=== PATIENT | female | born 2000 | race Caucasian/White ===

== ENCOUNTER 2023-05-30 11:02 | Outpatient (CLI) | payer BC, SELFPAY ==
[2023-05-30 14:29] LABS: Chlamydia DNA Amplified* NOT DETECTED (No Detected); GC DNA Amplified* NOT DETECTED (No Detected)
== END 2023-05-30 11:03 | disposition home or self-care (01) ==
PROVIDERS: Visit Provider Obstetrics & Gynecology
DX: Z34.91 Encounter for supervision of normal pregnancy, unspecified, first trimester (principal); Z3A.13 13 weeks gestation of pregnancy
CPT/HCPCS: 86592; 86703; 86704; 86706; 86762; 86787; 86803; 86850; 86900; 86901; 87086; 87340; 87491; 87591

== ENCOUNTER 2023-06-23 15:22 | Outpatient (CLI) | payer BC, SELFPAY | END 2023-06-23 15:23 | disposition home or self-care (01) | LOC: NFLDREF 15:23 | PROVIDERS: Visit Provider Obstetrics & Gynecology | DX: O23.42 Unspecified infection of urinary tract in pregnancy, second trimester (principal) | CPT/HCPCS: 87086 ==

== ENCOUNTER 2023-08-01 08:59 | Outpatient (CLI) | payer BC, SELFPAY ==
--- NOTE | 2023-08-01 09:15 | CRLHL7_ITS ---
For Patients: As a result of the Century Cures Act, medical imaging exams and procedure reports are released immediately into your electronic medical record. You may view this report before your referring provider. If you have questions, please contact your health care provider. INDICATION: Evaluate anatomy. COMPARISON: none TECHNIQUE: Real time cutler scale imaging of the fetus was performed as well as color Doppler analysis of the umbilical vessels. FINDINGS: Sonographic imaging demonstrates a single living intrauterine gestation. Fetus demonstrates a regular cardiac rate of 142 beats per minute. Fetus has a vertex position. The placenta lies anteriorly without evidence of placenta previa. Placental edge 4.5 cm from the internal cervical os. Amniotic fluid volume appears normal. Single deepest vertical pocket: 6.3 cm. The cervix is closed and measures 4.1 cm in length. The composite ultrasound gestational age is calculated at 22 weeks 4 days with an estimated sonographic due date of 12/01/2023. The estimated weight is 479 grams which lies at the 67th %. The following biometric measurements were obtained: Biparietal diameter: 4.5 cm/22 weeks 4 days 80th% Head circumference: 20.1 cm/22 weeks 2 days 62nd% Abdominal circumference: 17.4 cm/22 weeks 2 days 63rd% Femur length: 3.7 cm/21 weeks 6 days 44th% The HC/AC ratio measures: 1.16 range (1.05-1.22) On anatomic survey, there is a normal appearance of the cerebral ventricles, cavum septi pellucidi, cisterna magna and cerebellum. The nose, lips, and facial profile appear normal. The cervical, thoracic and lumbar spine are well visualized and appear normal. There is a normal four-chamber heart view and the left and right ventricular outflow tracts appear normal. The diaphragm and stomach appear normal. The kidneys and bladder also appear normal. There is a normal three-vessel cord and cord insertion site. The four extremities appear normal. A placental pop is present adjacent to the cord insertion measuring 3.4 x 1.2 cm. IMPRESSION: Sonographic gestational age 22 weeks 4 days and sonographic due date 12/01/2023. Sonographic age 6 days ahead of the clinical age. No intrinsic abnormalities noted on anatomic survey. 3.4 cm placental Pop adjacent to the cord insertion. Follow-up in the early 3rd trimester recommended. Dictated by Jonathan Gottlieb MD @ 08/03/2023 6:36:13 AM (Electronically Signed)
== END 2023-08-01 09:00 | disposition home or self-care (01) ==
LOC: US 09:00
PROVIDERS: Visit Provider Obstetrics & Gynecology
DX: Z34.92 Encounter for supervision of normal pregnancy, unspecified, second trimester (principal); Z3A.22 22 weeks gestation of pregnancy
CPT/HCPCS: 76805

== ENCOUNTER 2023-09-18 08:54 | Outpatient (CLI) | payer BC, SELFPAY | END 2023-09-18 08:55 | disposition home or self-care (01) | LOC: NFLDREF 09-21 04:53 | PROVIDERS: Visit Provider Obstetrics & Gynecology | DX: Z34.03 Encounter for supervision of normal first pregnancy, third trimester (principal) | CPT/HCPCS: 85461; 86592; 86850 ==

== ENCOUNTER 2023-09-25 08:06 | Outpatient (CLI) | payer BC, SELFPAY | END 2023-09-25 08:07 | disposition home or self-care (01) | LOC: NFLDREF 09-26 08:45 | PROVIDERS: Visit Provider Obstetrics & Gynecology | DX: R73.09 Other abnormal glucose (principal) | CPT/HCPCS: 82951; 82952 ==

== ENCOUNTER 2023-10-17 07:07 | Outpatient (CLI) | payer BC, SELFPAY ==
--- NOTE | 2023-10-17 07:15 | CRLHL7_ITS ---
For Patients: As a result of the Century Cures Act, medical imaging exams and procedure reports are released immediately into your electronic medical record. You may view this report before your referring provider. If you have questions, please contact your health care provider. INDICATION: Third trimester scan, evaluate growth. COMPARISON: 06/01/2023 TECHNIQUE: Real time cutler scale imaging of the fetus was performed. FINDINGS: Sonographic imaging demonstrates a single living intrauterine gestation. Fetus demonstrates a regular cardiac rate of 159 beats per minute. Fetus has a vertex position. The placenta lies anteriorly without evidence of placenta previa. Previously noted placental dueñas is no longer present. Amniotic fluid volume appears normal and there is a single deepest vertical pocket: 5.6 cm. The estimated weight is 2134gm which lies at the 55th %. On the prior OB ultrasound exam dated 08/01/2023 the estimated weight was at the 67th%. BPD 57th percentile. HC 39th percentile. AC 84th percentile. FL 11th percentile. The HC/AC ratio measures 1.01 range (0.96-1.11). IMPRESSION: Sonographic gestational age 33 weeks 1 day and sonographic due date of 12/04/2023. Good correlation with dates. Normal interval growth. Estimated weight 55th percentile. Abdominal circumference 84th percentile. Resolution of the previously noted placental dueñas. Dictated by Jonathan Gottlieb MD @ 10/17/2023 12:10:29 PM (Electronically Signed)
== END 2023-10-17 07:08 | disposition home or self-care (01) ==
LOC: US 07:08
PROVIDERS: Visit Provider Obstetrics & Gynecology
DX: Z34.93 Encounter for supervision of normal pregnancy, unspecified, third trimester (principal); Z3A.33 33 weeks gestation of pregnancy
CPT/HCPCS: 76816

== ENCOUNTER 2023-11-14 08:31 | Outpatient (CLI) | payer BC, SELFPAY ==
[2023-11-15 11:35] LABS: Strep B DNA Probe Negative (Negative)
[2023-11-15 12:05] LABS: Strep B Susceptibility Needed? No
== END 2023-11-14 08:32 | disposition home or self-care (01) ==
LOC: NFLDREF 08:31
PROVIDERS: Visit Provider Obstetrics & Gynecology
DX: Z34.03 Encounter for supervision of normal first pregnancy, third trimester (principal)
CPT/HCPCS: 87081; 87653

== ENCOUNTER 2023-12-01 22:20 | Inpatient (IN) | payer BC, SELFPAY ==
[2023-12-01 20:52] VITALS: BP 118/71; PULSE 73
[2023-12-01 20:53] VITALS: PULSE 74; TEMP 36.9; O2SAT 98
[2023-12-01 22:43] VITALS: BMI 27.9
[2023-12-01 23:17] VITALS: BP 113/72; PULSE 75; RESP 16; TEMP 36.6
[2023-12-01 23:33] LABS: Basophils Absolute Auto 0.02 K/uL (0.00-0.30); Basophils Percent Auto 0.2 % (0.0-3.0); Eosinophils Absolute Auto 0.09 K/uL (0.00-0.50); Hematocrit 38.5 % (33.0-51.0); Hemoglobin* 13.1 gm/dL (12.0-16.0); Immature Granulocytes Pct Auto 1.1 %; Lymphocytes Absolute Auto 1.99 K/uL (0.90-2.90); Mean Corpuscular HGB Conc 34 gm/dL (32-36); Mean Corpuscular Hemoglobin 29 pg (26-34); Mean Corpuscular Volume 87 fL (80-100); Monocytes Percent Auto 7.4 % (0.0-11.0); Neutrophils Absolute Auto 6.57 K/uL (1.7-7.0); Neutrophils Percent Auto 69.3 % (42.0-72.0); Platelet Count* 208 K/uL (140-440); Red Blood Count 4.45 m/uL (4.00-5.20); White Blood Count* 9.47 K/uL (4.50-11.00)
[2023-12-01 23:38] LABS: Slide Review Reflex No
[2023-12-02] VITALS (76 sets, daily range): BP systolic 88–130; BP diastolic 50–82; PULSE 60–118; RESP 16–18; TEMP 36.2–37; O2SAT 88–100
[2023-12-02] MEDS: LACTATED RINGERS 1000 ML 1,000 ML 925 ML IV (04:04)
--- NOTE | 2023-12-02 04:19 | W.PM.LDBA ---
Subjective History of Present Illness Time Seen by Provider: 04:19 Date Seen: 12/02/23 Narrative: Patient is being admitted to Labor and Delivery for spontaneous onset of labor. She is a 23 year old at 39 2/7 weeks gestation. Her full history and physical was dictated by Dr. Vinson on 11/21/2023. Please see this for details. Onset of contractions was at about 5:00 p.m. yesterday. Contractions have become more regular and painful since. No vaginal bleeding or leakage of fluid. Fetus remains active. Arrived at the Center for evaluation at about 8:00 p.m. and was subsequently admitted. Specific Issues/Plans Spouse: Alberto. Baby: Lydia # Placental dueñas by cord insertion on FAS: Recommend F/U USN for EFW at 32-34 weeks. Resolution of placental dueñas. EFW 55th%tile, AC 84th%tile. on 10/17/23. # 09/18/2023: Elevated 1hr GTT: 145 -3hr GTT: all normal. MaterniT-21 test negative Rh Negative (A-) Rhogam: 09/18/2023 Covid: declined Flu: declined Tdap: Offer at 32 weeks[] 32 wk PHQ/SHELTON: 34wk Hgb: 11.8 36wk GBS: 11/14/23 neg H&P: By Dr. Vinson on 11/21/23 US: 10/17/2023: EFW 2134 g (55%), BPD 57%, HC 39%, AC 83%, FL 11%, SDP 5.6 cm, vertex presentation. Comments: Currently requesting epidural for pain management. OB - Problem Based A/P Additional Plan (1) Spontaneous onset of labor: Status: Acute Plan Epidural now for pain then reassess for amniotomy. Anticipate vaginal delivery. OB Exam Physical Exam Vital signs: Temp Pulse Resp BP Pulse Ox 97.9 F 64 16 96/54 L 98 12/01/23 23:17 12/02/23 03:16 12/01/23 23:17 12/02/23 03:16 12/01/23 20:53 Detailed Labor and Delivery Exam Patient Gravid: Yes Dilation (cm): 5 Effacement (%): 90 Cervix position: anterior Consistency: soft Contraction Frequency: 2 minutes Contraction intensity: Strong/Firm Comments: Cervical exam per nursing Fetus (Single) Station: 0 Amniotic Membrane Status: intact Heart Rate Baseline: 130 Monitor Accelerations: Present Monitor Decelerations: None Chief Business Development Officer Variability: Moderate (6-25)
[2023-12-02] MEDS: ROPIVACAINE 0.2% 100 ml 100 ML 12 MG EPIDURAL (04:34)
[2023-12-02] MEDS: BUPIVACAINE 0.25% PF 10 ML 10 ML ML EPIDURAL (04:35)
[2023-12-02] MEDS: LACTATED RINGERS 1000 ML 1,000 ML 125 ML IV (05:03)
--- NOTE | 2023-12-02 05:06 | PM.ANBPRC ---
[facility] Medical History (Updated 12/02/23 @ 04:25 by Nataliia Herron MD) History of imperforate anus ?Z87.738 - Personal history of other specified (corrected) congenital malformations of digestive system (ICD-10) Surgical History (Updated 06/02/23 @ 15:36 by Nataliia Herron MD) History of oral surgery (2014) ?Z98.890 - Other specified postprocedural states (ICD-10) H/O wisdom tooth extraction (2022) ?K08.409 - Partial loss of teeth, unspecified cause, unspecified class (ICD-10) History of colostomy reversal (1998) ?Z98.890 - Other specified postprocedural states (ICD-10) History of colostomy (1998) Family History (Updated 06/02/23 @ 15:37 by Nataliia Herron MD) Mother Hypothyroidism Bipolar disorder Father High blood pressure Social History (Updated 06/02/23 @ 15:39 by Nataliia Herron MD) Narrative: Works in a bank and as a realtor What is your current living situation?: I presently have a place to live Problems where you live: no known problems In the past 12 months, utilities in danger of being shut off: no In past 12 months, lack of transportation kept you from medical appts, meetings, work, or getting things needed for daily living: no In the past 12 mos, have been you worried that your food would run out before you had money to buy more?: never true In the past 12 mos, the food you bought just didn't last and you didn't have money to buy more?: never true Highest level of school completed/degree received: Associate degree: occupational, technical, vocational program Smoking Status: Never smoker How often do you have a drink containing alcohol: never AUDIT-C Alcohol total score: 0 Non-prescribed substance use: denies use Are you now , , , , never or living with a partner: Social isolation score (0-1 are the most socially isolated patients): 1 How often does anyone, including family, friends and others, physically hurt you: never How often does anyone, including family, friends and others, insult or talk down to you: never How often does anyone, including family, friends and others, threaten you with harm: never How often does anyone, including family, friends and others, scream or curse at you: never Little interest or pleasure in doing things: not at all Feeling down, depressed, or hopeless: not at all Meds Home Medications and Allergies Home Medications ?Medication ?Instructions ?Recorded ?Confirmed ?Type docosahexaenoic acid 200 mg mg PO 05/30/23 12/01/23 History capsule ( DHA) docusate sodium 100 mg capsule 100 mg PO QDAY 06/27/23 12/01/23 History polyethylene glycol 3350 17 4 g PO QDAY 06/27/23 12/01/23 History gram/dose oral powder (Miralax) Allergies Allergy/AdvReac Type Severity Reaction Status Date / Time amoxicillin Allergy Intermediate Hives Verified 12/01/23 20:43 cefprozil [From Cefzil] Allergy Intermediate Rash Verified 12/01/23 20:43 clavulanic acid Allergy Intermediate Verified 12/01/23 20:43 sulfamethoxazole Allergy Intermediate Hives Verified 12/01/23 20:43 [From Sulfamethoxazole-Trimethoprim] trimethoprim Allergy Intermediate Hives Verified 12/01/23 20:43 [From Sulfamethoxazole-Trimethoprim] Results Labs Labs: Laboratory Results - last 24 hr 12/01/23 23:15 WBC 9.47 RBC 4.45 Hgb 13.1 Hct 38.5 MCV 87 MCH 29 MCHC 34 RDW Coeff of Constance 12.0 Plt Count 208 Neut % (Auto) 69.3 Lymph % (Auto) 21.0 [place] % (Auto) 7.4 Eos % (Auto) 1.0 Baso % (Auto) 0.2 Neut # (Auto) 6.57 Lymph # (Auto) 1.99 [place] # (Auto) 0.70 Eos # (Auto) 0.09 Baso # (Auto) 0.02 Abs Immat Gran (auto) 0.10 Imm/Tot Granulo (auto) 1.1 Vital Signs Vital Signs: Last Vital Signs Temp 97.9 F 12/01/23 23:17 Pulse 75 12/02/23 05:03 Resp 16 12/01/23 23:17 BP 118/71 12/02/23 05:03 Pulse Ox 100 12/02/23 04:31 Weight: 76.204 kg Height: 165.1 cm Anesthesia Procedures Epidural Insertion Patient Location: OB Start Time: 04:00 Stop Time: 04:50 Start Date: 12/02/23 Stop Date: 12/02/23 Reason for Block: procedure for pain Patient Position: sitting Performed By: Александр Gaming Preanesthetic Checklist: IV checked, risks and benefits discussed, surgical consent, monitors and equipment checked, pre-op evaluation, timeout performed and anesthesia consent Prep: chlorhexidine gluconate Monitoring: blood pressure monitoring, continuous pulse oximetry and heart rate Approach: midline Vertebral Space: lumbar (1-5) Epidural Technique: ROSEMARY saline Needle Type: Tuohy needle Injection Technique: continuous catheter Needle gauge: 17 Needle Length (cm): 10 cm Needle Insertion Depth (cm): 6 Catheter Gauge: 19 Catheter Type: multi-orifice Catheter at skin depth (cm): 12 Test Dose Result: negative and lidocaine 1.5% with epinephrine 1 to 200,000
[2023-12-02] MEDS: LACTATED RINGERS 1000 ML 1,000 ML 1125 ML IV (11:47)
[2023-12-02] MEDS: OXYTOCIN 30 unit/500 ML in NS 30 UNIT/500 ML BAG 300 UNIT IVPB (12:03)
--- NOTE | 2023-12-02 12:51 | W.PM.OBVAGDE ---
OB Procedure Vag Delivery Mother Details Mother Details: The patient is a 23 year-old, 1, Para 1, admitted on 12/01/23 at 39 2/7 weeks gestation. : 1 Para: 1 Weeks Gestation: 39.2 Admission Date: 12/02/23 Additional Details Amniotic Membrane Status: AROM Amniotic Membrane Rupture Date: 12/02/23 Amniotic Membrane Rupture Time: 04:56 Amniotic Membrane Fluid Description: Clear Analgesia/Anesthesia Type: Epidural Waterbirth: No Pitcoin: No Intrapartal Events: Labor Augmentation Delivery augmentation: rupture of membranes Labor Onset: 04:00 Complete: 11:10 Pushin:20 Heart: heart tones during second stage were category 2. Patient found complete and plus 2 station by nurses. NST started showed episodes of early and variable decelerations, moderate variability and accelerations in between contractions. NST had remained category 1 until this time. After starting to push had 1 episode of a late deceleration with slow recovery, position changes, IVF bolus given and scalp stimulation attempted and FHR recovered, patient then had 2 contractions close together and patient was pushing effectively, she was instructed to push at first but then FHR deceleration was noted to be prolonged and was not recovering quickly with usual interventions. FHR was confirmed with a scalp electrode. I recommended to place a vacuum to expedite delivery, she had a small crown with pushing efforts. At the same time it was noted that heart rate started to improve, we skipped one contraction and did not push and FHR recovered. Vacuum was not utilized. Delivery was expected to happen within the next 30 minutes and it did. Delivery Details Delivery Date: 12/02/23 Delivery Time: 11:59 Route of delivery: Infant Gender: Female Viability: Alive; Heart Rate Present Position at Delivery: OA Delivery Details: Delivered over intact perineum via spontaneous vaginal delivery. FAUSTINA. Compound presentation. Infant was placed on maternal abdomen.? Cord was clamped and cut after a 30-60 second delay. Nose and mouth were bulb suctioned.? Infant weight pending. 1 Minute Interval Total Score: 8 5 Minute Interval Total Score: 9 Additional Details Shoulder Dystocia: No Placenta Delivery Time: 12:07 Placental Delivery Description: Spontaneous Delivery repair: Vicryl Procedure Done: Global Blood Loss: 451 Laceration: Perineal - 2nd Degree Episiotomy Description: None Blood Loss Measurement Type: QBL Bakri Used: No Sponge/Need Count Correct: Yes Cord Vessel Description: 3 Vessels Event Summary Status: Mother and infant were stable after delivery. Disposition: floor
[2023-12-02] MEDS: IBUPROFEN 600 MG TABLET PO ×2 (17:17→23:25)
[2023-12-02] MEDS: ACETAMINOPHEN 500 MG TABLET 1000 MG PO (19:11)
[2023-12-03 00:55] VITALS: BP 104/70; PULSE 16; RESP 16; TEMP 36.8; O2SAT 82
[2023-12-03] MEDS: ACETAMINOPHEN 500 MG TABLET 1000 MG PO (01:13)
[2023-12-03 05:01] VITALS: BP 102/72; PULSE 84; RESP 16; TEMP 36.6; O2SAT 97
[2023-12-03] MEDS: IBUPROFEN 600 MG TABLET PO ×2 (05:33→14:12)
[2023-12-03 06:37] LABS: Hemoglobin* 11.1 gm/dL (12.0-16.0)
[2023-12-03 08:00] VITALS: BP 106/71; PULSE 72; RESP 16; TEMP 36.6; O2SAT 99
--- NOTE | 2023-12-03 09:31 | P.DS_ITS ---
DS: Providers Provider Date Seen: 12/03/23 Date of admission: 12/01/23 22:20 Primary care physician: Not a Local Provider Admitting Clinician: Nataliia Herron MD Attending Physician on discharge: Lorena Pino CNM DS: Diagnosis Discharge Diagnosis (1) care and examination immediately after delivery: Status: Acute (2) Lactating mother: Status: Acute Exam Narrative: Exam Narrative: GENERAL APPEARANCE:? normal affect, alert, no distress MOOD:? appropriate CHEST:? clear to auscultation HEART:? regular rate and rhythm ABDOMEN:? soft, non-tender the uterine fundus is At Umbilicus, Midline and is appropriate for the stage of recovery. PERINEUM:? mild edema of the perineum, there is a Perineal Laceration,?2nd degree, that is healing well. EXTREMITIES:? normal and no edema Const: Vital Signs, click to edit/add: Vital Signs - 24 hr 12/02/23 09:36 12/02/23 09:51 12/02/23 10:18 Temperature Pulse Rate 86 79 74 Pulse Rate [Pulse Oximeter] Respiratory Rate Blood Pressure 97/57 L 106/59 L 124/75 Blood Pressure [Le ft Arm] [facility] 10:36 12/02/23 10:52 12/02/23 11:06 Temperature Pulse Rate 90 89 109 H Pulse Rate [Pulse Oximeter] Respiratory Rate Blood Pressure 95/50 L 88/50 L 128/82 Blood Pressure [Le ft Arm] Pulse [facility]xim[facility] 11:07 12/02/23 11:23 12/02/23 11:23 Temperature 98 F Pulse Rate 95 66 Pulse Rate [Pulse Oximeter] Respiratory Rate Blood Pressure 127/64 117/66 Blood Pressure [Le ft Arm] Pulse [facility]xim[facility] 11:28 12/02/23 11:30 12/02/23 11:33 Temperature Pulse Rate Pulse Rate [Pulse Oximeter] Respiratory Rate Blood Pressure Blood Pressure [Le ft Arm] Pulse Oximetry 100 91 100 Oxygen Delivery Fl thod 12/02/23 11:37 12/02/23 11:38 12/02/23 11:39 Temperature Pulse Rate 99 Pulse Rate [Pulse Oximeter] Respiratory Rate Blood Pressure 114/82 Blood Pressure [Le ft Arm] Pulse Oximetry 100 88 Oxygen Delivery Me thod 12/02/23 11:43 12/02/23 11:48 12/02/23 11:52 Temperature Pulse Rate 67 Pulse Rate [Pulse Oximeter] Respiratory Rate Blood Pressure 122/59 L Blood Pressure [Le ft Arm] Pulse Oximetry 100 99 Oxygen Delivery Me thod 12/02/23 11:53 12/02/23 11:58 12/02/23 12:08 Temperature Pulse Rate 74 Pulse Rate [Pulse Oximeter] Respiratory Rate Blood Pressure 120/66 Blood Pressure [Le ft Arm] Pulse Oximetry 100 100 Oxygen Delivery Fl thod 12/02/23 12:08 12/02/23 12:15 12/02/23 12:15 Temperature 98.2 F 98.3 F Pulse Rate Pulse Rate [Pulse Oximeter] Respiratory Rate Blood Pressure Blood Pressure [Le ft Arm] Pulse Oximetry 100 Oxygen Delivery Fl thod 12/02/23 12:16 12/02/23 12:34 12/02/23 12:34 Temperature 98.4 F Pulse Rate 82 62 Pulse Rate [Pulse Oximeter] Respiratory Rate Blood Pressure 128/68 121/63 Blood Pressure [Le ft Arm] Pulse Oximetry Oxygen Delivery Fl thod 12/02/23 12:46 12/02/23 12:46 12/02/23 13:02 Temperature 98.1 F Pulse Rate 76 63 Pulse Rate [Pulse Oximeter] Respiratory Rate Blood Pressure 113/66 117/61 Blood Pressure [Le ft Arm] Pulse Oximetry Oxygen Delivery Fl thod 12/02/23 13:02 12/02/23 13:16 12/02/23 13:16 Temperature 98.2 F 98.2 F Pulse Rate 64 Pulse Rate [Pulse Oximeter] Respiratory Rate Blood Pressure 121/67 Blood Pressure [Le ft Arm] Pulse Oximetry Oxygen Delivery Fl thod 12/02/23 13:31 12/02/23 13:31 12/02/23 13:46 Temperature 98.4 F Pulse Rate 67 66 Pulse Rate [Pulse Oximeter] Respiratory Rate Blood Pressure 111/75 111/72 Blood Pressure [Le ft Arm] Pulse Oximetry Oxygen Delivery Fl thod 12/02/23 13:46 12/02/23 14:01 12/02/23 14:16 Temperature 98.2 F Pulse Rate 71 83 Pulse Rate [Pulse Oximeter] Respiratory Rate Blood Pressure 109/71 107/66 Blood Pressure [Le ft Arm] Pulse Oximetry Oxygen Delivery Me thod 12/02/23 14:31 12/02/23 14:46 12/02/23 15:01 Temperature Pulse Rate 96 118 H 103 H Pulse Rate [Pulse Oximeter] Respiratory Rate Blood Pressure 105/65 108/54 L 107/63 Blood Pressure [Le ft Arm] Pulse Oximetry Oxygen Delivery Me thod 12/02/23 15:16 12/02/23 15:45 12/02/23 22:10 Temperature 97.2 F L Pulse Rate 86 Pulse Rate [Pulse Oximeter] 72 112 H Respiratory Rate 17 16 Blood Pressure 107/63 Blood Pressure [Le ft Arm] 115/77 101/69 Pulse Oximetry 98 96 Oxygen Delivery Me thod Room Air Room Air 12/03/23 00:55 12/03/23 05:01 Temperature 98.2 F 98 F Pulse Rate Pulse Rate [Pulse Oximeter] 16 L 84 Respiratory Rate 16 16 Blood Pressure Blood Pressure [Le ft Arm] 104/70 102/72 Pulse Oximetry 82 L 97 Oxygen Delivery Me thod Room Air Room Air Documenting provider has reviewed patient's vital signs: yes OB - DS: Summary Hospital Course Hospital Course: Judith is a 23 y.o. G 1 P 1 who was admitted to L & [facility] for spontaneous onset of labor. ?She had a NVD that was uncomplicated. The patient feels well. ?The pain is well controlled with current medications. ?She has no new complaints. ?She is breast feeding and reports things are going well. the patient has done well.? Vitals have been stable.? She has remained afebrile.? Has a good cristóbal etite, is tolerating a general diet. She had difficulty voiding last evening and was straight cathed for >1.5 L of urine. She was then able to void without issue and is now voiding without difficulty.?She is passing gas and has not had a bowel movement.? She is ambulating and denies any dizziness.? Has small amount of rubra lochia. She is undecided on prevention. Problems: [] plan: Discharge home with baby. Follow up in 2 weeks and 6 weeks. , may see if needed Hgb 11.1. Urinary retention immediately , resolved Plan post bladder scan x2 to ensure she is emptying after inability to void Encouraged timed voiding every 2-3 hours to prevent retention Peripartum Data Infant delivery method: Vaginal Laceration description: Perineal - 2nd Degree complications: none [place] Infant Gender: Female Discharge Plan: Home Status at Discharge Functional status at discharge: independent ambulation Overall status at discharge: patient is progressing back to baseline Time Spent with Patient Time attestation: Total time spent providing and/or coordinating discharge services: Time spent: Less than 30 minutes Discharge Plan Discharge Disposition: Home, Self-Care Date of Admission: 12/01/23 22:20 Attending Provider on Discharge: Lorena Pino Primary Care Provider: Provider,Not a Local Condition: Stable Anticipated Discharge Date/Time: 12/03/23 12:00 Discharge Medications: New ibuprofen 600 mg Tablet 600 mg PO Q6H PRNQty: 60 0RF Continued DHA 200 mg capsule 200 mg PO DAILY docusate sodium 100 mg capsule 100 mg PO QDAY polyethylene glycol 3350 [Miralax] 17 gram/dose powder 4 g PO QDAY Discharge Orders: Discharge Order (Routine); Ordered 12/03/23 Ordered By: Lorena Pino Patient Education: OB Over the Counter Medication Information, OB Vaginal/Breast Feeding Additional Instructions: Discharge instructions were reviewed with the patient including signs and symptoms of infection and home going medications Nothing vaginally for 6 weeks: no tampons or intercourse Off Work or School for 6 weeks 2-week visit: discuss infant feeding concerns, review control options and screen for anxiety/depression. 6-week visit for an annual exam. consultation services are available to all mothers and babies for the first year after delivery.? To make an appointment, please call [phone]. Activity Level: Activity as Tolerated Follow Up Appointments: [facility] [Provider Group] Forms: [place] Info Instructions
--- NOTE | 2023-12-03 13:03 | PM.ANPOST ---
Post Anesthesia Note Post Anesthesia Note Patient seen: Inpatient Respiratory Status: adequate Cardiovascular Status: adequate Mental Status: baseline Pain: adequate Temp: baseline Anesthetic awareness: N/A Complications: none Follow care: none
[2023-12-03 14:40] VITALS: BP 101/67; PULSE 85; RESP 16; TEMP 36.6; O2SAT 99
[2023-12-04 03:29] LABS: Rapid Plasma Reagin (RPR) Non Reactive (Non Reactive)
== END 2023-12-03 15:15 | disposition home or self-care (01) | DRG 560 ==
LOC: OB OUT 22:21 → OB 22:21
PROVIDERS: Obstetrics & Gynecology; Admitting Provider Obstetrics & Gynecology; Visit Provider Obstetrics & Gynecology
DX: O70.1 Second degree perineal laceration during delivery (principal); O26.893 Other specified pregnancy related conditions, third trimester; Z3A.39 39 weeks gestation of pregnancy; Z37.0 Single live birth; Z67.11 Type A blood, Rh negative; O90.89 Other complications of the puerperium, not elsewhere classified; R33.9 Retention of urine, unspecified
CPT/HCPCS: 01967; 36415; 51798; 85018; 85025; 85461; 86592; A9270; J0665; J2371; J2791; J2795; J7120

== ENCOUNTER 2024-11-01 15:32 | Emergency (ER) | payer BC, SELFPAY ==
--- OUTSIDE RECORDS SUMMARY | 2024-11-01 15:34 | XMS_ITS | Clinical Summary ---
Author Organization [facility] Address [address] [place] [address] Care Team Providers Care Cotton Bag Clipper Name Role Phone Felicia Mercado M.D. Primary Care Provider [phone] Source Comments Patient records contain information from all sites at [facility]. For routine questions regarding patient records, call [phone] during business hours, M-F 8:00 AM - 5:00 PM Central Time. Record requests for emergency care only can be directed to [phone] at any time.[facility] Allergies Active Allergy Reactions Criticality Noted Date Comments Amoxicillin-Pot Clavulanate Rash 07/26/19 10 Sulfamethoxazole-Trimethopri m Hives (Reselect Reaction) Medium 07/17/2017 Cefprozil Rash 07/25/2009 Medications smozqti-Lc-icjc- FA (VINATE ONE) 60 mg iron-1 mg per tablet Take 1 tablet by mouth daily. 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 Immunizations Immunization Administration Dates Next Due 4vHPV (discontinued) 03/06/2016,08/16/2014,10/06 DTaP (Infanrix, Tripedia) 06/20/2003,08/1999,01/05/1999,1998,1998 H1N1 All Forms 02/09/2009 HepA Pediatric/Adolescent 08/04/2014,10/06/2013 Hib-HepB 06/22/1999,1998,1998 IPV 06/20/2003, 0,1998,1998 Influenza Split 01/03/2006 Influenza, Quadrivalent, Adj uvanted, Preservative Free 05/21/2022(Deferred: Patient decision) Influenza, Seasonal, Injectable 12/11/19 12,01/26/2007,01/03/2006,2003,02/09/2003 Influenza, Unspecified 12/28/2012,2011,12/20/2010,2009 MCV4 (Menactra)(Discontinued) 08/04/2014, 010 MMR 06/20/2003,01/07/2000 PCV7 (discontinued) 06/12/2000,01/07/2000 RV5 (ROTATEQ) 1998 SARS-COV-2 (COVID-19) - PFIZ ER (Discontinued)(12 years or older) 05/21/2022(Deferred: Patient decision) Tdap 05/21/2022, 3(Deferred: Patient decision),11/03/2009 SAMUEL 11/03/2009,06/22/1999 influenza trivalent vaccine (6 months and older)(PF) 12/01/2008,12/24/2007 Family History Medical History Relation Name Comments Hypertension Father Sameer Alcocer Bipolar disorder Mother Hypothyroidism Mother No Known Problems Sister Breast cancer Neg Hx Diabetes Neg Hx Relation Name Status Comments Father Sameer Alcocer Mother Sister Social History Tobacco Use Types Packs/Day Years Used Date Smoking Tobacco: Never Passive Smoke Exposure: Never Smokeless Tobacco: Never Tobacco Cessation:Counseling Given: Not Answered Alcohol Use Standard Drinks/Week Comments Yes 0 (1 standard drink = 0.6 oz pur e alcohol) occasional Humiliation, Afraid, Rape, and Kick questionnair e Answer Date Recorded Within the last year, have y ou been afraid of your partner or ex-partner? No 05/14/2022 Within the last year, have y ou been humiliated or emotionally abused in other ways by your partner or ex-partner? No Within the last year, have y ou been kicked, hit, slapped, or otherwise physically hurt by your partner or ex-partner? No 05/14/2022 Within the last year, have y ou been raped or forced to have any kind of sexual activity by your partner or ex-partner? No 05/14/2022 Hunger Vital Sign Answer Date Recorded Within the past 12 months, y ou worried that your food would run out before you got the money to buy more. Never true 05/15/19 23 Within the past 12 months, t he food you bought just didn't last and you didn't have money to get more. Never true 05/14/2022 PRAPARE - Transportation Answer Date Re corded In the past 12 months, has l ack of transportation kept you from medical appointments or from getting medications? No 05/01 In the past 12 months, has l ack of transportation kept you from meetings, work, or from getting things needed for daily living? No 05/14/2022 Housing Stability Vital Sign Answer Brady e Recorded In the last 12 months, was t here a time when you were not able to pay the mortgage or rent on time? No 05/14/2022 In the last 12 months, how many places have you lived? 2 05/14/2022 In the last 12 months, was t here a time when you did not have a steady place to sleep or slept in a jail (including now)? No 05/14/2022 Education Answer Date Recorded What is the highest level of school you have completed or the highest degree you have received? 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 Gender Identity Female 05/14/2022 12:07 PM CDT Sexual Orientation Straight 05/14/2022 12 :07 PM CDT Last Filed Vital Signs Vital Sign Reading Time Taken Comments Blood Pressure 107/69 05/02/2023 9:28 AM [employer] UP DESIGNER Pulse 73 05/02/2023 9:28 AM [employer] DES[employer] Temperature 36.8 C (98.2 F) 05/02/2023 9:28 AM [employer] DESIGNER Respiratory Rate 16 05/21/2022 9:19 AM CDT Oxygen Saturation 100% 05/21/2022 9:19 AM CDT Inhaled Oxygen Concentration - - Weight 62.2 kg (137 lb 3.2 oz) 05/02/2023 9:28 A M [employer] Height 165.5 cm (5' 5.16) 05/21/2022 9:19 AM CD T Body Mass Index 22.72 05/21/2022 9:19 AM CDT Plan of Treatment Health Maintenance Due Date Last Done Comments HIV Screening 1998 Hepatitis C Screening 1998 COVID-19 Vaccine ( season) 2023 Depression Screening (Annual PHQ-2) 03/03/2024 Influenza Vaccine (#1) 2024 3, 12/11/2011, 12/11/2011, Additional history exists Cervical/Vaginal Cancer Screening 05/21/2025 05/21/2022, 05/21/2022 DTaP,Tdap,and Td Vaccines (8 - Td or Tdap) 05/21/2032 05/21/2022, 11/03/2009, 06/20/2003, Additional history exists Hepatitis B Vaccines Completed 06/22/1999, 1998, 1998 Pneumococcal vaccine (0-49 years) Aged Out 06/12/2000, 01/07/2000 No longer eligibl e based on patient's age to complete this topic IPV Vaccines Completed 06/20/2003, 06/02, 1998, Additional history exists HPV Vaccines Completed 03/06/2016, 08/01, 10/06/2013 Chlamydia and Gonorrhea Screening Discontinued 05/21/2022, 09/27/2019 Procedures Procedure Name Priority Date/Time Associated Diagnosis Comments HPV WITH GENOTYPING, PCR, THINPREP Routine 05/21/2022 10:16 AM CDT CHLAMYDIA/GONORRHOE AE AMPLIFIED RNA Routine 05/21/2022 10:15 AM CDT General Medical Examination Adult from Last 3 Months or Most Recently Relevant to Health Maintenance Results * HPV with Genotyping, PCR, ThinPrep (05/21/2022 10:16 AM CDT) HPV with Genotyping, ThinPrep, PCR Negative Negative 05/22/2022 2:33 PM CDT MKTO Comment: Negative for high risk HPV by nucleic acid amplification. The following high risk HPV types were not detected: 16, 18, 31, 33, 35, 39, 45, 51, 52, 56, 58, 59, 66, and 68 This result does not rule out HPV in the patient, as the sensitivity of the test depends on the timing of the specimen collection and the quality of the specimen. Result should be correlated with patient's history, clinical presentation, and [employer] cytology report. 05/21/2022 10:1 6 AM CDT 05/22/2022 7:04 AM CDT us Galilea Gonzalez APRN, C.N.P. LAB MICROBIOLOGY - GENERAL ORDERABLES Final Result Performing Organization Address [facility] [place] [address], [place] [address] * Chlamydia / Gonorrhoeae Amplified RNA (05/21/2022 10:15 AM CDT) Source Thin Prep Vial, Cervix/Endoc ervix 05/22/2022 2:00 PM CDT MKTO Chlamydia trachomatis amplified RNA Negative Negative 05/22/2022 2:00 PM CDT MKTO Source Thin Prep Vial, Cervix/Endoc ervix 05/22/2022 2:00 PM CDT MKTO Neisseria gonorrhoeae amplified RNA Negative Negative 05/22/2022 2:00 PM CDT MKTO Thin Prep Vial (Cervix/Endocerv ix) 05/21/2022 10:15 AM CDT 05/21/2022 2:44 PM CDT us Galilea Gonzalez APRN, C.N.P. LAB MICROBIOLOGY - GENERAL ORDERABLES Final Result Performing Organization Address [facility] [place] [address], [place] [address] from Last 3 Months or Most Recently Relevant to Health Maintenance Insurance [facility] Care Teams Cotton Bag Clipper Relationship Specialty Start Date End Date Felicia Mercado M.D. [address] [place] [phone] PCP - General 08/15/16
[2024-11-01 15:46] VITALS: BP 112/74; PULSE 81; RESP 20; TEMP 36.4; O2SAT 100; BMI 22.1
[2024-11-01] MEDS: ONDANSETRON 2 MG/ML inj 4 MG IVP (16:24)
--- NOTE | 2024-11-01 16:24 | ED.ABDPAIN ---
HPI - Abdominal Pain General Chief Complaint: Abdominal Pain Stated Complaint: pain in lower right stomach Time Seen by Provider: 11/01/24 15:52 History of Present Illness HPI narrative: This 24-year-old female comes in with crampy abdominal pain over the past 3 hours. She states that the pain completely goes away but then becomes very severe. 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 She did have a surgery of course early on to create an option for bowels to do their job. She however has not had pain with this kind of intensity. She does not report any fevers. She has had some nausea but no vomiting. She did have some constipation in the previous couple days but had a good normal bowel movement this morning. She did take some MiraLax to assist with this process. After the bowel movement was when the pain began as just now described. Related Data Home Medications ?Medication ?Instructions ?Recorded ?Confirmed magnesium 250 mg tablet 250 mg PO DAILY 11/01/24 11/01/24 Previous Rx's ?Medication ?Instructions ?Recorded ketorolac 10 mg tablet 10 mg PO TID 5 days #15 tabs 11/01/24 Allergies Allergy/AdvReac Type Severity Reaction Status Date / Time amoxicillin Allergy Intermediate Hives Verified 01/13/24 08:14 cefprozil (From Cefzil) Allergy Intermediate Rash Verified 01/13/24 08:14 clavulanic acid Allergy Intermediate Verified 01/13/24 08:14 sulfamethoxazole (From Allergy Intermediate Hives Verified 01/13/24 08:14 Sulfamethoxazole-Trimethoprim) trimethoprim (From Allergy Intermediate Hives Verified 01/13/24 08:14 Sulfamethoxazole-Trimethoprim) Review of Systems Status of ROS Reports: 10 or more systems reviewed and unremarkable except as noted in History and below Narrative Constitutional: No fevers, no weight gain or loss. Eyes: No discharge. No vision changes. HENT: No congestion, no sore throat, no ear pain. Cardiovascular: No chest pain, no palpitations. Respiratory: No shortness of breath, no wheezes, no cough. Gastrointestinal: No vomiting, no diarrhea. Crampy abdominal pain more localized in the right lower quadrant. Genitourinary: No dysuria, no hematuria. Musculoskeletal: Normal range of motion. Skin: No rashes, no pruritis. Neurological: No dizziness, weakness, sensory change, speech change. Endo/Heme/Allergies: No bruising or bleeding. No polydipsia. Pysch: no suicidality, no anxiety, no insomnia. All other systems reviewed and are negative. [facility] Medical History (Updated 11/01/24 @ 19:10 by Emerson Lincoln MD) Normal vaginal delivery ?O80 - Encounter for full-term uncomplicated delivery (ICD-10) History of imperforate anus ?Z87.738 - Personal history of other specified (corrected) congenital malformations of digestive system (ICD-10) Surgical History (Updated 06/02/23 @ 15:36 by Nataliia Herron MD) History of oral surgery (2014) ?Z98.890 - Other specified postprocedural states (ICD-10) H/O wisdom tooth extraction (2022) ?K08.409 - Partial loss of teeth, unspecified cause, unspecified class (ICD-10) History of colostomy reversal (1998) ?Z98.890 - Other specified postprocedural states (ICD-10) History of colostomy (1998) Family History (Updated 06/02/23 @ 15:37 by Nataliia Herron MD) Mother Hypothyroidism Bipolar disorder Father High blood pressure Social History (Updated 06/02/23 @ 15:39 by Nataliia Herron MD) Narrative: Works in a bank and as a realtor What is your current living situation?: I presently have a place to live Problems where you live: no known problems In the past 12 months, utilities in danger of being shut off: no In past 12 months, lack of transportation kept you from medical appts, meetings, work, or getting things needed for daily living: no In the past 12 mos, have been you worried that your food would run out before you had money to buy more?: never true In the past 12 mos, the food you bought just didn't last and you didn't have money to buy more?: never true Highest level of school completed/degree received: Associate degree: occupational, technical, vocational program Smoking Status: Never smoker Do you use any of these nicotine containing products: None Second hand tobacco smoke exposure: No How often do you have a drink containing alcohol: never AUDIT-C Alcohol total score: 0 Non-prescribed substance use: denies use Are you now , , , , never or living with a partner: Social isolation score (0-1 are the most socially isolated patients): 1 How often does anyone, including family, friends and others, physically hurt you: never How often does anyone, including family, friends and others, insult or talk down to you: never How often does anyone, including family, friends and others, threaten you with harm: never How often does anyone, including family, friends and others, scream or curse at you: never service: No Exam Narrative: Exam Narrative: Constitutional: Well-developed, well-nourished, no acute distress. HEENT: Normocephalic, atraumatic. Neck: Normal range of motion. Nontender. Supple. Heart: Regular. No murmurs. Normal rate. Intact distal pulses. Lungs: Clear to auscultation. No chest discomfort. No wheezes, rhonchi, or rales. Abdomen: Normal bowel sounds. No rebound tenderness. Rovsing sign is negative. Initially on exam the patient had no pain anywhere. Later she had severe cramping. Genitalia: Deferred. Back: No midline tenderness. Normal range of motion. Extremities: Normal range of motion. No injury. Skin: Intact. No rash. Warm. No erythema or pallor. Neurologic: No altered sensation. No weakness. Alert and oriented. Psychiatric: No suicidality. No anxiety or depression. No insomnia. Nursing notes and vitals signs are reviewed. Const: Vital Signs, click to edit/add: Vital Signs - 24 hr 11/01/24 15:46 11/01/24 17:43 Temperature 97.6 F 97.4 F L Pulse Rate [Pulse Oximeter] 81 78 Respiratory Rate 20 16 Blood Pressure [Ri ght Upper Arm] 112/74 115/72 Pulse Oximetry 100 98 Oxygen Delivery Me thod Room Air Room Air Course Vital Signs Vital signs: Initial Vital Signs Temperature 97.6 F 11/01/24 15:46 Temperature Source Temporal Artery Scan 11/01/24 15:46 Pulse Rate 81 11/01/24 15:46 Respiratory Rate 20 11/01/24 15:46 Blood Pressure 112/74 11/01/24 15:46 Blood Pressure Mean 86 11/01/24 15:46 Blood Pressure Position Sitting 11/01/24 15:46 Pulse Oximetry 100 11/01/24 15:46 Oxygen Delivery Method Room Air 11/01/24 15:46 Vital Signs Temperature 97.6 F 11/01/24 15:46 Pulse Rate 81 11/01/24 15:46 Respiratory Rate 20 11/01/24 15:46 Blood Pressure 112/74 11/01/24 15:46 Pulse Oximetry 100 11/01/24 15:46 Oxygen Delivery Method Room Air 11/01/24 15:46 Temperature 97.4 F L 11/01/24 17:43 Pulse Rate 78 11/01/24 17:43 Respiratory Rate 16 11/01/24 17:43 Blood Pressure 115/72 11/01/24 17:43 Pulse Oximetry 98 11/01/24 17:43 Oxygen Delivery Method Room Air 11/01/24 17:43 Medications Administered Medications: Discontinued Medications Generic Name Dose Route Start Last Admin Trade Name Sveta PRN Reason Stop Dose Admin Ketorolac Tromethamine 15 mg 11/01/24 16:11 11/01/24 16:24 Ketorolac 30 Mg/Ml Inj IVP 11/01/24 16:12 15 mg ONCE ONE Administration Ondansetron HCl 4 mg 11/01/24 16:11 11/01/24 16:24 Ondansetron 2 Mg/Ml Inj IVP 11/01/24 16:12 4 mg ONCE ONE Administration MDM - Abdominal Pain MDM Narrative Medical decision making narrative: This patient comes in with crampy abdominal pain that sometimes completely goes away but other times becomes very severe. She does report a longstanding history of constipation since . She has been doing well without any assisting treatments to manage her bowels but has taken MiraLax more recently. She is not showing signs of an acute abdomen. She does not have any tenderness when palpating in McBurney's point. I did discuss the role of CT imaging but indicated enough reassurance is with her exam in her symptoms such that she declined this study. She was agreeable to an x-ray of her abdomen but her beta hCG turned positive. She was thrilled to hear that she is and an ultrasound was instead ordered. This returns with reassuring results. She is very early on in her . The patient did receive an IV dose of Toradol 15 mg which brought sufficient relief to her symptoms. Lab Data Labs: Lab Results 11/01/24 Range/Units 15:55 WBC 12.73 H (4.50-11.00) K/uL RBC 4.89 (4.00-5.20) m/uL Hgb 13.8 (12.0-16.0) gm/dL Hct 41.1 (33.0-51.0) % MCV 84 (80-100) fL MCH 28 (26-34) pg MCHC 34 (32-36) gm/dL RDW Coeff of Constance 11.9 (11.5-15.5) % Plt Count 298 (140-440) K/uL Neut % (Auto) 84.3 H (42.0-72.0) % Lymph % (Auto) 10.8 L (20-44) % [place] % (Auto) 4.0 (0.0-11.0) % Eos % (Auto) 0.5 (0.0-7.0) % Baso % (Auto) 0.2 (0.0-3.0) % Neut # (Auto) 10.70 H (1.7-7.0) K/uL Lymph # (Auto) 1.40 (0.90-2.90) K/uL [place] # (Auto) 0.50 (0.00-0.90) K/UL Eos # (Auto) 0.10 (0.00-0.50) K/uL Baso # (Auto) 0.00 (0.00-0.30) K/uL Abs Immat Gran (auto) 0.00 (0.00-0.30) K/uL Imm/Tot Granulo (auto) 0.2 % HCG, Qual Positive (Negative) Discharge Plan Discharge Clinical Impression: Constipation, Abdominal pain, Patient Disposition: Home, Self-Care Condition: Improved Additional Instructions: Take medication as prescribed and needed. Follow up with MD for 1st OB appointment. Return if worsening. Prescriptions: New ketorolac 10 mg tablet 10 mg PO TID 5 Days Qty: 15 0RF No Action magnesium 250 mg tablet 250 mg PO DAILY Follow Up/Referrals: Provider,Not a Local [Primary Care Provider, Family Practice] Stand Alone Forms: [employer] Info Instructions
[2024-11-01 16:55] LABS: Hematocrit* 41.1 % (33.0-51.0); Hemoglobin* 13.8 gm/dL (12.0-16.0); Immature Granulocytes Pct Auto 0.2 %; Mean Corpuscular HGB Conc 34 gm/dL (32-36); Mean Corpuscular Hemoglobin 28 pg (26-34); Mean Corpuscular Volume 84 fL (80-100); RDW Coefficient of Variation % 11.9 % (11.5-15.5); Red Blood Count* 4.89 m/uL (4.00-5.20); White Blood Count* 12.73 K/uL (4.50-11.00)
[2024-11-01 17:00] LABS: Immature Granulocytes Abs Auto 0.00 K/uL (0.00-0.30); Lymphocytes Absolute Auto 1.40 K/uL (0.90-2.90); Slide Review Reflex No
[2024-11-01 17:40] LABS: HCG Qualitative Serum* Positive (Negative)
[2024-11-01 17:43] VITALS: BP 115/72; PULSE 78; RESP 16; TEMP 36.3; O2SAT 98
--- NOTE | 2024-11-01 17:47 | CRLHL7_ITS ---
For Patients: As a result of the Century Cures Act, medical imaging exams and procedure reports are released immediately into your electronic medical record. You may view this report before your referring provider. If you have questions, please contact your health care provider. INDICATION: Abdominal pain, positive test COMPARISON: None. TECHNIQUE: Real-time cutler-scale imaging of the pelvis was performed transvaginal. FINDINGS: There is no intrauterine or ectopic . Ovaries are normal in size. Incidental noted. No excess pelvic free fluid. Endometrial stripe is unremarkable. No uterine fibroid. IMPRESSION: No intrauterine or ectopic . Dictated by Jonathan Gottlieb MD @ 11/02/2024 5:28:39 AM (Electronically Signed)
[2024-11-01 19:18] VITALS: BP 118/68; PULSE 70; RESP 16; TEMP 36.7
== END 2024-11-01 19:18 | disposition home or self-care (01) ==
PROVIDERS: Emergency Provider Emergency Medicine Emergency Medical Services
DX: Z34.00 Encounter for supervision of normal first pregnancy, unspecified trimester (principal); R10.31 Right lower quadrant pain; K59.00 Constipation, unspecified
CPT/HCPCS: 36415; 76817; 84703; 85025; 93976; 96374; 96375; 99284; J1885; J2405

== ENCOUNTER 2024-11-16 08:57 | Outpatient (CLI) | payer BC, SELFPAY ==
--- NOTE | 2024-11-16 09:15 | CRLHL7_ITS ---
For Patients: As a result of the Century Cures Act, medical imaging exams and procedure reports are released immediately into your electronic medical record. You may view this report before your referring provider. If you have questions, please contact your health care provider. OB ULTRASOUND LESS THAN 14 WEEKS, 11/16/2024 CLINICAL HISTORY: Dating. COMPARISON: 11/01/2024. TECHNIQUE: Real time cutler scale imaging of the fetus was performed. Transvaginal imaging performed. Transvaginal ultrasound of the pelvis was performed to better evaluate the genitourinary organs such as the ovaries and/or endometrium. FINDINGS: Imaging: TV. LMP: 09/13/2024. HAYES by LMP: 06/20/2025. GA: 9 weeks 1 day. CRL: 0.3 cm, 6 weeks 0 days. HAYES: 07/12/2025. FHR: N/A. GEST SAC: 1.3 cm, appears WNL. YOLK SAC: 3.1 mm, appears WNL. RIGHT OV: 3.4 x 1.3 2.3 cm. WNL. LEFT OV: 2.9 x 2.1 x 3.0 cm. WNL. CL. IMPRESSION: Intrauterine gestational sac containing a pole and yolk sac. Gestational sac appears normal as does the yolk sac. pole measures 6 weeks 0 days and measures 3.3 mm. Unable to obtain heart rate. Follow-up in 10-14 days is recommended. Jonathan Gottlieb M.D. Diagnostic Radiologist [email or web address] Transcribed: 11:10 am DW/Dictated by: Jonathan Gottlieb MD @ 11/16/2024 10:19:00 AM (Electronically Signed)
== END 2024-11-16 08:58 | disposition home or self-care (01) ==
LOC: US 08:58
PROVIDERS: Visit Provider Physician Assistant
DX: Z34.91 Encounter for supervision of normal pregnancy, unspecified, first trimester (principal); Z3A.01 Less than 8 weeks gestation of pregnancy
CPT/HCPCS: 76817

== ENCOUNTER 2024-11-29 15:52 | Outpatient (CLI) | payer BC, SELFPAY ==
--- NOTE | 2024-11-29 16:00 | CRLHL7_ITS ---
For Patients: As a result of the Cures Act, medical imaging exams and procedure reports are released immediately into your electronic medical record. You may view this report before your referring provider. If you have questions, please contact your health care provider. OB ULTRASOUND INDICATION: Follow-up viability. TECHNIQUE: Real time grayscale imaging of the fetus was performed. Transvaginal. Transvaginal imaging performed to better demonstrate the endometrium and ovaries. HAYES by US: 07/12/2025. GA: 7 w, 6 d. Previous US: Yes, 11/16/2024. HAYES by US: 07/12/2025. GA: 6 w, 0 d. CRL: 15 cm. 7 w 6 d. HAYES: 07/12/2025. FHR: 169 BPM. Gestational sac: 2.8 cm. Appears within normal limits. Yolk sac: 3.2 mm. Appears within normal limits. Right ovary: N/V. Left ovary: 4.1 x 2.1 x 2.1 cm. CL. IMPRESSION: 1. Single living intrauterine measures 7 weeks 6 days with sonographic due date 07/12/2025. 2. Subchorionic hemorrhage measures 3 x 12 x 8 mm. Jonathan Gottlieb M.D. Diagnostic Radiologist [email or web address]/ann marie jesus/Dictated by: Jonathan Gottlieb MD @ 11/30/2024 7:47:00 AM (Electronically Signed)
== END 2024-11-29 15:53 | disposition home or self-care (01) ==
LOC: US 15:52
PROVIDERS: Visit Provider Physician Assistant
DX: O20.9 Hemorrhage in early pregnancy, unspecified (principal); Z3A.01 Less than 8 weeks gestation of pregnancy
CPT/HCPCS: 76817; 83021; 86703; 86803; 86850; 87086; 87340; 87491; 87591

== ENCOUNTER 2024-11-29 17:05 | Outpatient (CLI) | payer BC, SELFPAY ==
[2024-11-29 20:33] LABS: Chlamydia DNA Amplified* NOT DETECTED (No Detected); GC DNA Amplified* NOT DETECTED (No Detected)
== END 2024-11-29 17:06 | disposition home or self-care (01) ==
PROVIDERS: Visit Provider Physician Assistant
DX: Z34.91 Encounter for supervision of normal pregnancy, unspecified, first trimester (principal)
CPT/HCPCS: 83020; 83021; 85660; 86592; 86703; 86704; 86706; 86762; 86787; 86803; 86850; 86900; 86901; 87086; 87340; 87491; 87591

== ENCOUNTER 2025-02-22 08:00 | Outpatient (CLI) | payer BC, SELFPAY ==
--- NOTE | 2025-02-22 08:15 | CRLHL7_ITS ---
For Patients: As a result of the Century Cures Act, medical imaging exams and procedure reports are released immediately into your electronic medical record. You may view this report before your referring provider. If you have questions, please contact your health care provider. OB ULTRASOUND GREATER THAN 14 WEEKS CLINICAL HISTORY: BFAS. TECHNIQUE: Real time cutler scale imaging of the fetus was performed. Transabdominal imaging performed. COMPARISON: 11/29/2024, 11/16/2024, 11/01/2024. FINDINGS: HAYES by US: 07/12/2025. GA: 20 weeks 0 days. Position: Vertex. Cervix: Visualized. Technique: TA. Length of closed cervix: 3.7 cm. Placenta/Cord: Placenta Position: Posterior. Technique: TA. Placenta tip to internal OS: 3.3 cm. Umbilical Cord: 3 vessel cord. Placental Insertion: Central. Amniotic Fluid: 4.6 cm SDP. Observed Structures Calvarium/Spine: Cerebellum: 2 cm, 20 weeks 2 days Cisterna Magna: 4.2 mm Nuchal Fold: 3.6 mm Lateral Ventricle: 7.1 mm CSP Choroid Plexus Midline Falx Spine Abdomen: Stomach Abd Cord Insert Urinary Bladder Kidneys Diaphragm Face: Nose/Lips Orbital view Profile Limbs: Upper Extremities Lower Extremities Hands Feet Vascular: 4 Ch Heart LVOT RVOT 3VV 3VTV Biometry BPD: 5 cm, 21 weeks 0 days. 86% HC: 17.8 cm, 20 weeks 2 days. 53% AC: 14.6 cm, 20 weeks 0 days. 42% FL: 3.3 cm, 20 weeks 1 day. 49% FL/AC: 22.27% HC/AC: 1.21. Heart Rate: 141 bpm. Age by this US: 20 weeks 2 days. HAYES by this US: 07/10/2025. EFW: 332 grams. 12 oz. Percentile by HAYES: 51% IMPRESSION: 1. Concordance of clinical and sonographic dating. 2. Incomplete visualization of the three vessel view and three vessel trachea view. Remainder of the anatomic survey is normal. Short term follow-up recommended. Jonathan Gottlieb M.D. Diagnostic Radiologist [place] [place]. [email or web address] Transcribed: 3:39 pm DW/Dictated by: Jonathan Gottlieb MD @ 02/22/2025 2:36:00 PM (Electronically Signed)
== END 2025-02-22 08:01 | disposition home or self-care (01) ==
LOC: US 08:01
PROVIDERS: Visit Provider Obstetrics & Gynecology
DX: Z34.92 Encounter for supervision of normal pregnancy, unspecified, second trimester (principal); Z3A.20 20 weeks gestation of pregnancy
CPT/HCPCS: 76805